=== PATIENT | female | born 1970 | race Caucasian/White ===

== ENCOUNTER 2021-09-04 02:05 | Emergency (ER) | payer BC ==
[2021-09-04 02:51] LABS: HEMOGLOBIN 12.7 gm/dl (12.3-15.3); RED BLOOD COUNT 4.25 M/UL (4.00-5.10); WHITE BLOOD COUNT 7.9 K/UL (4.5-11.0)
[2021-09-04 03:19] LABS: BUN/CREATININE RATIO 22 (0-10)
[2021-09-04] MEDS ORDERED: ASPIRIN CHEWABL81 MG PO (06:38)
== END 2021-09-04 06:55 | disposition home or self-care (01) ==
LOC: ER1 02:05
PROVIDERS: Family Medicine
DX: R07.89 Other chest pain (principal); E78.5 Hyperlipidemia, unspecified; Z90.49 Acquired absence of other specified parts of digestive tract
CPT/HCPCS: 71045; 80053; 82550; 82553; 83874; 84484; 85025; 85379; 90471; 90715; 93005; 96374; 99285; J1885

== ENCOUNTER → 2021-12-10 | Outpatient (CLI) | payer BC ==
[~2021-12-10] MED LIST: ASPIRIN CHEWABL81 MG PO
== END ==
LOC: KOH-I 08:27
DX: J32.4 Chronic pansinusitis (principal)
CPT/HCPCS: 70486

== ENCOUNTER → 2022-01-05 | Outpatient (CLI) | payer BC | LOC: KOH-I 09:16 | DX: M54.2 Cervicalgia (principal); J30.9 Allergic rhinitis, unspecified; F33.1 Major depressive disorder, recurrent, moderate; F41.9 Anxiety disorder, unspecified; E78.5 Hyperlipidemia, unspecified; M72.2 Plantar fascial fibromatosis; M47.812 Spondylosis without myelopathy or radiculopathy, cervical region; M48.02 Spinal stenosis, cervical region | CPT/HCPCS: 72141 ==

== ENCOUNTER → 2022-02-09 | Outpatient (CLI) | payer BC ==
[~2022-02-09] MED LIST changes: +BUPROPION HCL100 M1 PO; +CALCIUM + VITA1 EACH PO; +CRESTOR 10 MG T10 MG PO; +ESTRADIOL1 EAC6 TD; +GABAPENTIN250 MG/5 M PO; +IRON CHEWS15 MG PO; +MULTI-VITAMIN1 EACH PO; +OMEPRAZOLE20 MG PO; +PROGESTERONE100 MG PO; +SINGULAIR10 MG PO; +TIZANIDINE HCL4 MG PO; +VALIUM5 MG PO; +XYZAL5 MG PO; +ZOLOFT100 MG PO
== END ==
LOC: KOH-I 08:30
DX: M47.22 Other spondylosis with radiculopathy, cervical region (principal); M47.12 Other spondylosis with myelopathy, cervical region; M48.02 Spinal stenosis, cervical region
CPT/HCPCS: 72125

== ENCOUNTER → 2022-02-09 | Outpatient (CLI) | payer BC ==
[2022-02-09 10:55] LABS: RED BLOOD COUNT 4.66 M/UL (4.00-5.10); WHITE BLOOD COUNT 6.6 K/UL (4.5-11.0)
[2022-02-09 11:39] LABS: BUN/CREATININE RATIO 27 (0-10)
== END ==
LOC: OPSV2 02-07 10:00 → EDSTATUS 09:00 → OPSV2 09:25
PROVIDERS: Orthopaedic Surgery
DX: Z01.818 Encounter for other preprocedural examination (principal); M54.12 Radiculopathy, cervical region; G95.89 Other specified diseases of spinal cord
CPT/HCPCS: 36415; 71046; 80048; 81001; 85027; 85610; 85730; 87081; 93005

== ENCOUNTER → 2022-02-14 | Outpatient (CLI) | payer BC ==
[~2022-02-14] MED LIST changes: +XIIDRA OU
[2022-02-14 12:57] LABS: BUN/CREATININE RATIO 22 (0-10)
== END ==
LOC: LAB 11:47
PROVIDERS: Orthopaedic Surgery
DX: Z01.812 Encounter for preprocedural laboratory examination (principal); G95.9 Disease of spinal cord, unspecified; M54.12 Radiculopathy, cervical region
CPT/HCPCS: 36415; 80048; 86850; 86900; 86901

== ENCOUNTER 2022-02-16 05:36 | Day surgery (SDC) | payer BC ==
[~2022-02-16] VITALS: Ht 165.1 cm; Wt 84.8 kg
[~2022-02-16 05:36] MED LIST changes: -XIIDRA OU
[2022-02-16] MEDS ORDERED: XIIDRA OU (06:28)
[2022-02-16 14:31] LABS: HEMOGLOBIN 13.1 gm/dl (12.3-15.3); RED BLOOD COUNT 4.42 M/UL (4.00-5.10); WHITE BLOOD COUNT 11.3 K/UL (4.5-11.0)
[2022-02-16 14:43] LABS: BUN/CREATININE RATIO 16 (0-10)
[2022-02-17 05:34] LABS: HEMOGLOBIN 12.5 gm/dl (12.3-15.3); RED BLOOD COUNT 4.15 M/UL (4.00-5.10); WHITE BLOOD COUNT 11.4 K/UL (4.5-11.0)
[2022-02-17 07:02] LABS: BUN/CREATININE RATIO 19 (0-10)
== END 2022-02-17 12:15 | disposition home or self-care (01) ==
LOC: OR 05:36 → CCU 05:36 → OR 07:30 → CCU 16:31 → OR 02-17 12:15
PROVIDERS: Orthopaedic Surgery
DX: M50.022 Cervical disc disorder at C5-C6 level with myelopathy (principal); M50.122 Cervical disc disorder at C5-C6 level with radiculopathy; M48.02 Spinal stenosis, cervical region; E78.5 Hyperlipidemia, unspecified; F43.10 Post-traumatic stress disorder, unspecified; K21.9 Gastro-esophageal reflux disease without esophagitis; F41.9 Anxiety disorder, unspecified; F32.A Depression, unspecified; Z88.2 Allergy status to sulfonamides; Z79.899 Other long term (current) drug therapy; Z20.822 Contact with and (suspected) exposure to COVID-19
CPT/HCPCS: 36415; 72040; 72050; 76000; 80048; 85025; 85027; C1713; J0690; J1100; J1170; J2001; J2250; J2405; J2704; J3010; J3370; J7040; J7120

== ENCOUNTER → 2022-04-22 | Outpatient (CLI) | payer BC ==
[~2022-04-22] MED LIST changes: +XIIDRA OU
== END ==
LOC: KOH-I 12:06
DX: M25.561 Pain in right knee (principal); F41.9 Anxiety disorder, unspecified; E78.5 Hyperlipidemia, unspecified; M72.2 Plantar fascial fibromatosis; M54.2 Cervicalgia; J30.9 Allergic rhinitis, unspecified; F33.1 Major depressive disorder, recurrent, moderate; M25.761 Osteophyte, right knee; Z76.89 Persons encountering health services in other specified circumstances
CPT/HCPCS: 73562

== ENCOUNTER → 2022-07-05 | Outpatient (CLI) | payer BC | LOC: KOH-I 11:05 | DX: M25.561 Pain in right knee (principal); F41.9 Anxiety disorder, unspecified; M72.2 Plantar fascial fibromatosis; M54.2 Cervicalgia; J30.9 Allergic rhinitis, unspecified; F33.1 Major depressive disorder, recurrent, moderate; S83.241A Other tear of medial meniscus, current injury, right knee, initial encounter | CPT/HCPCS: 73721 ==